=== PATIENT | female | born 2005 | race African-American/Black ===

== ENCOUNTER → 2024-09-27 14:31 | Outpatient (BNVA) | payer OTHER, SELFPAY | PROVIDERS: Visit Provider Physician Assistant Medical | DX: S93.402A Sprain of unspecified ligament of left ankle, initial encounter (principal); W20.8XXA Other cause of strike by thrown, projected or falling object, initial encounter | CPT/HCPCS: 73610; 99203 ==

== ENCOUNTER → 2024-10-01 10:00 | Outpatient (BNVA) | payer OTHER, SELFPAY | PROVIDERS: Visit Provider Physician Assistant Medical | DX: S93.402A Sprain of unspecified ligament of left ankle, initial encounter (principal); W20.8XXA Other cause of strike by thrown, projected or falling object, initial encounter; Z02.79 Encounter for issue of other medical certificate | CPT/HCPCS: 99213 ==